=== PATIENT | female | born 1970 | race Caucasian/White ===

== ENCOUNTER 2020-07-02 05:40 | Inpatient (IN) | payer BC ==
[2020-07-01 12:03] VITALS: BMI 27.4
[2020-07-02] MEDS ORDERED: Bupivacaine PF 0.5% 30 ML VIAL ONE (06:09)
[2020-07-02] MEDS ORDERED: EPINEPHrine 1 MG/ML AMP ONE (06:09)
[2020-07-02] MEDS ORDERED: Thrombin 5000 UNITS/5 ML VIAL ONE (06:10)
[2020-07-02 06:26] LABS: INR-International Normal Ratio 0.9; PTT 25.3 sec (22.9-36.1)
[2020-07-02] MEDS ORDERED: Fentanyl 250 MCG/5 ML VIAL ONE (06:28)
[2020-07-02] MEDS ORDERED: SUGAMMADEX SODIUM 200 MG/2 ML VIAL ONE (06:29)
[2020-07-02 06:43] LABS: Band 1 % (5-11); Eosinophils 2 % (0-10); Hemoglobin 13.6 g/dL (12.0-16.0); Lymphocytes 42 % (21-51); MDiff Complete? YES; Macrocytosis SLIGHT = 6-15 cells (100X) (0-5/hpf); Mean Corpuscular HGB CONC 34.4 g/dL (32.0-36.0); Mean Corpuscular Hemoglobin 37.9 pg (27.0-31.0); Mean Platelet Volume 7.4 fL (7.4-10.4); Monocytes 13 % (0-10); Neutrophil 40 % (42-75); Platelet Count 247 thou/uL (130-400); Platelet Morphology Comment Appears Adequate; RBC Distribution Width 12.1 % (11.5-14.5); Red Blood Cell (RBC) Count 3.59 mill/uL (4.20-5.40); White Blood Cell (WBC) Count 4.8 thou/uL (4.8-10.8)
[2020-07-02] MEDS ORDERED: Midazolam HCl 2 mg/2 ml Vial ONE (06:57)
[2020-07-02] MEDS ORDERED: HYDROmorphone 0.5 MG/0.5 ML SYRINGE ONE ×3 (07:02→18:26)
[2020-07-02] MEDS ORDERED: PHENYLEPHRINE-NS 100 MCG/ML 10 ML SYRINGE ONE (07:07)
[2020-07-02] MEDS ORDERED: Glycopyrrolate 0.2 MG/ML 5 ML SYRINGE ONE (07:07)
[2020-07-02] MEDS ORDERED: Lidocaine 1% PF 5 ML VIAL ONE (07:07)
[2020-07-02] MEDS ORDERED: PROPOFOL 200 MG/20 ML VIAL ONE (07:07)
[2020-07-02] MEDS ORDERED: Rocuronium Bromide 10 MG/ML (10ML VIAL) ONE (07:07)
[2020-07-02] MEDS ORDERED: Vecuronium 10 MG VIAL ONE (07:07)
[2020-07-02] MEDS ORDERED: Ondansetron PF 4 MG/2 ML Vial ONE (07:07)
[2020-07-02] MEDS ORDERED: Ondansetron HCl/PF 4 MG/2 ML Vial IVP PRN (13:49)
[2020-07-02] MEDS ORDERED: Promethazine HCl 25 MG/ML VIAL SLOW IVP PRN (13:49)
[2020-07-02] MEDS ORDERED: HYDROmorphone 2 MG/ML VIAL SLOW IVP PRN (13:49)
[2020-07-02] MEDS ORDERED: Promethazine HCl 25 MG/ML VIAL IM PRN ×2 (13:49→13:54)
[2020-07-02] MEDS ORDERED: Promethazine 25 MG TAB PO PRN (13:54)
[2020-07-02] MEDS ORDERED: Prochlorperazine 10 MG/2 ML VIAL IM PRN (13:54)
[2020-07-02] MEDS ORDERED: Acetaminophen/Codeine 30-300mg Tablet PO PRN (13:54)
[2020-07-02] MEDS ORDERED: Milk Of Magnesia 30 ML UDCUP PO PRN (13:54)
[2020-07-02] MEDS ORDERED: diphenhydrAMINE 50 MG/ML VIAL IVP PRN (13:54)
[2020-07-02] MEDS ORDERED: Bisacodyl 10 MG SUPP PR PRN (13:54)
[2020-07-02] MEDS ORDERED: diphenhydrAMINE 25 MG CAP PO PRN (13:54)
[2020-07-02] MEDS ORDERED: Promethazine HCl 12.5 MG SUPP PR PRN (13:54)
[2020-07-02] MEDS ORDERED: Mag-Al 1200 mg/1200 mg/30 ML UDCUP PO PRN (13:54)
[2020-07-02] MEDS ORDERED: Ondansetron PF 4 MG/2 ML Vial IVP PRN (13:54)
[2020-07-02] MEDS ORDERED: HYDROcodone/Acetaminophen 10/325 mg Tablet PO PRN (13:54)
[2020-07-02] MEDS ORDERED: Scopolamine 1.5 mg/72 hour Patch TD SCH (14:00)
[2020-07-02] MEDS ORDERED: Fentanyl 100 MCG/2 ML VIAL ONE ×3 (14:10→17:34)
[2020-07-02] MEDS ORDERED: Promethazine HCl 25 MG/ML VIAL ONE (14:54)
[2020-07-02] MEDS ORDERED: CEFAZOLIN 2 GM in Premix Bag 1 BAG IVPB SCH ×2 (15:00→23:59)
[2020-07-02] MEDS ORDERED: tiZANidine HCl 4 MG TAB ONE (16:40)
[2020-07-02] MEDS: Sodium Chloride 0.9% 1,000 ML IV SCH (19:56)
[2020-07-02] MEDS: Morphine 4 MG/ML VIAL SLOW IVP PRN (20:14)
[2020-07-02] MEDS: CEFAZOLIN 2 GM in Premix Bag 1 BAG IVPB SCH (20:34)
[2020-07-02] MEDS: HYDROcodone/Acetaminophen 10/325 mg Tablet PO PRN (20:37)
[2020-07-02] MEDS: Acetaminophen/Codeine 30-300mg Tablet PO PRN (21:55)
[2020-07-02] MEDS: predniSONE 5 MG TAB PO SCH (21:55)
[2020-07-02] MEDS: tiZANidine HCl 4 MG TAB PO PRN (22:03)
[2020-07-03] MEDS: Morphine 4 MG/ML VIAL SLOW IVP PRN ×2 (00:32→09:10)
[2020-07-03] MEDS: HYDROcodone/Acetaminophen 10/325 mg Tablet PO PRN ×2 (02:42→20:29)
[2020-07-03] MEDS: Sodium Chloride 0.9% 1,000 ML IV SCH (03:00)
[2020-07-03] MEDS: CEFAZOLIN 2 GM in Premix Bag 1 BAG IVPB SCH ×2 (05:19→13:28)
[2020-07-03 06:24] LABS: #Lymphocytes 1.1 thou/uL (1.20-3.40); #Monocytes 1.2 thou/uL (0.11-0.59); #Neutrophils 6.7 thou/uL (1.40-6.50); %Basophils 0.1 % (0.0-1.0); %Eosinophils 0.2 % (0.0-10.0); %Lymphocytes 12.1 % (21.0-51.0); %Monocytes 12.9 % (0.0-10.0); %Neutrophils 74.8 % (42.0-75.0); Hemoglobin 10.5 g/dL (12.0-16.0); Mean Corpuscular HGB CONC 33.9 g/dL (32.0-36.0); Mean Corpuscular Hemoglobin 37.4 pg (27.0-31.0); Mean Platelet Volume 7.1 fL (7.4-10.4); Platelet Count 223 thou/uL (130-400); Red Blood Cell (RBC) Count 2.81 mill/uL (4.20-5.40)
[2020-07-03 06:45] LABS: Albumin 3.3 g/dL (3.5-5.0); Anion Gap 11 mmol/L (10-20); BUN (Urea Nitrogen) 10 mg/dL (9.8-20.1); Calc. Creatinine Clearance 107 mL/min (70-130); Calcium 8.2 mg/dL (7.8-10.44); Carbon Dioxide 25 mmol/L (22-29); Chloride 104 mmol/L (98-107); Glucose 131 mg/dL (70-105); Phosphorus 2.2 mg/dL (2.3-4.7); Potassium 3.6 mmol/L (3.5-5.1); Sodium 136 mmol/L (136-145)
[2020-07-03] MEDS: Loratadine 10 MG TAB PO SCH (09:15)
[2020-07-03] MEDS: predniSONE 5 MG TAB PO SCH ×2 (09:16→20:29)
[2020-07-03] MEDS: Hydroxychloroquine Sulfate 200 MG TAB PO SCH (09:16)
[2020-07-03] MEDS: Ondansetron ODT 8 MG TAB SL SCH ×4 (09:16→20:28)
[2020-07-03] MEDS: Acetaminophen/Codeine 30-300mg Tablet PO PRN ×3 (10:34→17:48)
[2020-07-03] MEDS ORDERED: CEFAZOLIN 2 GM in Premix Bag 1 BAG IVPB SCH (13:00)
[2020-07-04] MEDS: tiZANidine HCl 4 MG TAB PO PRN (01:11)
[2020-07-04] MEDS: Morphine 4 MG/ML VIAL SLOW IVP PRN (01:20)
[2020-07-04] MEDS: Acetaminophen/Codeine 30-300mg Tablet PO PRN ×4 (03:52→19:30)
[2020-07-04 06:03] LABS: #Basophils 0.1 thou/uL (0.0-0.2); #Lymphocytes 1.1 thou/uL (1.20-3.40); #Monocytes 1.2 thou/uL (0.11-0.59); #Neutrophils 6.9 thou/uL (1.40-6.50); %Basophils 0.7 % (0.0-1.0); %Lymphocytes 11.7 % (21.0-51.0); %Monocytes 13.1 % (0.0-10.0); %Neutrophils 74.5 % (42.0-75.0); Hemoglobin 9.2 g/dL (12.0-16.0); Mean Corpuscular HGB CONC 31.6 g/dL (32.0-36.0); Mean Platelet Volume 7.2 fL (7.4-10.4); Platelet Count 199 thou/uL (130-400); RBC Distribution Width 12.1 % (11.5-14.5); Red Blood Cell (RBC) Count 2.63 mill/uL (4.20-5.40); White Blood Cell (WBC) Count 9.2 thou/uL (4.8-10.8)
[2020-07-04 06:21] LABS: Anion Gap 11 mmol/L (10-20); BUN (Urea Nitrogen) 8 mg/dL (9.8-20.1); Calc. Creatinine Clearance 111 mL/min (70-130); Calcium 8.3 mg/dL (7.8-10.44); Carbon Dioxide 27 mmol/L (22-29); Chloride 102 mmol/L (98-107); Glucose 125 mg/dL (70-105); Potassium 3.6 mmol/L (3.5-5.1); Sodium 136 mmol/L (136-145)
[2020-07-04] MEDS: predniSONE 5 MG TAB PO SCH (08:12)
[2020-07-04] MEDS: Loratadine 10 MG TAB PO SCH (08:12)
[2020-07-04] MEDS: Ondansetron ODT 8 MG TAB SL SCH ×5 (08:13→20:01)
[2020-07-04] MEDS: Hydroxychloroquine Sulfate 200 MG TAB PO SCH (08:13)
[2020-07-04] MEDS ORDERED: Fleet Enema 133 ML BOT PR SCH (16:15)
[2020-07-04] MEDS: HYDROcodone/Acetaminophen 10/325 mg Tablet PO PRN (17:40)
[2020-07-04] MEDS: Senokot S 8.6-50 MG TAB PO SCH (19:30)
[2020-07-05] MEDS: Acetaminophen/Codeine 30-300mg Tablet PO PRN (03:15)
[2020-07-05] MEDS: tiZANidine HCl 4 MG TAB PO PRN (03:15)
[2020-07-05 06:54] LABS: #Eosinphils 0.1 thou/uL (0.0-0.7); #Lymphocytes 1.8 thou/uL (1.20-3.40); #Neutrophils 4.3 thou/uL (1.40-6.50); %Basophils 0.1 % (0.0-1.0); %Eosinophils 0.7 % (0.0-10.0); %Lymphocytes 25.3 % (21.0-51.0); %Monocytes 13.4 % (0.0-10.0); %Neutrophils 60.5 % (42.0-75.0); Hemoglobin 8.5 g/dL (12.0-16.0); Mean Corpuscular HGB CONC 32.4 g/dL (32.0-36.0); Platelet Count 204 thou/uL (130-400); RBC Distribution Width 11.9 % (11.5-14.5); Red Blood Cell (RBC) Count 2.36 mill/uL (4.20-5.40); White Blood Cell (WBC) Count 7.2 thou/uL (4.8-10.8)
[2020-07-05 07:16] LABS: Anion Gap 8 mmol/L (10-20); BUN (Urea Nitrogen) 11 mg/dL (9.8-20.1); Calc. Creatinine Clearance 105 mL/min (70-130); Calcium 8.5 mg/dL (7.8-10.44); Carbon Dioxide 27 mmol/L (22-29); Chloride 101 mmol/L (98-107); Glucose 122 mg/dL (70-105); Potassium 3.4 mmol/L (3.5-5.1); Sodium 133 mmol/L (136-145)
[2020-07-05] MEDS: Hydroxychloroquine Sulfate 200 MG TAB PO SCH (08:37)
[2020-07-05] MEDS: Loratadine 10 MG TAB PO SCH (08:38)
[2020-07-05] MEDS: Ondansetron ODT 8 MG TAB SL SCH (08:38)
[2020-07-05] MEDS: Senokot S 8.6-50 MG TAB PO SCH (08:38)
[2020-07-05 08:44] VITALS: TEMP 98.5
[2020-07-05] MEDS ORDERED: predniSONE 5 MG TAB PO SCH (09:00)
[2020-07-05] MEDS ORDERED: Polyethylene Glycol 3350 17 GM Packet PO SCH (09:00)
[2020-07-05] MEDS ORDERED: Sodium Chloride 0.9% 250 ML 250 ML IVPB SCH (09:15)
[2020-07-05 11:05] VITALS: BP 99/62
== END 2020-07-05 10:57 | disposition home or self-care (01) | DRG 454 ==
LOC: SURG A 05:40 → T4-B 20:03
PROVIDERS: ADMIT Neurological Surgery; ATTEND Neurological Surgery
PROC: 0SG00AJ Fusion of Lumbar Vertebral Joint with Interbody Fusion Device, Posterior Approach, Anterior Column, Open Approach (ICD-10-PCS; principal; 2020-07-02)
PROC: 0SG0071 Fusion of Lumbar Vertebral Joint with Autologous Tissue Substitute, Posterior Approach, Posterior Column, Open Approach (ICD-10-PCS; 2020-07-02)
PROC: 0SB20ZZ Excision of Lumbar Vertebral Disc, Open Approach (ICD-10-PCS; 2020-07-02)
PROC: 00UT0KZ Supplement Spinal Meninges with Nonautologous Tissue Substitute, Open Approach (ICD-10-PCS; 2020-07-02)
DX: M48.062 Spinal stenosis, lumbar region with neurogenic claudication (principal); G96.11 Dural tear; Z20.822 Contact with and (suspected) exposure to COVID-19; M43.16 Spondylolisthesis, lumbar region; M06.9 Rheumatoid arthritis, unspecified; G89.29 Other chronic pain; K59.01 Slow transit constipation; D64.9 Anemia, unspecified; Z88.1 Allergy status to other antibiotic agents; Z88.8 Allergy status to other drugs, medicaments and biological substances
CPT/HCPCS: 36415; 76000; 80048; 80069; 85007; 85025; 85027; 85610; 85730; C1713; C1768; J0171; J0690; J1170; J2250; J2270; J2405; J2550; J2704; J3010; J3370; J3490; J7050; J7512; Q0162; S0020